=== PATIENT | male | born 1970 | race Caucasian/White ===

== ENCOUNTER 2017-11-12 20:38 | Emergency (ER) | payer OTHER ==
[~2017-11-12] VITALS: Ht 180.3 cm; Wt 105.2 kg
[2017-11-12] MEDS ORDERED: COREG25 MG PO (20:52)
[2017-11-12] MEDS ORDERED: SPIRONOLACTONE25 M1 PO (20:52)
[2017-11-12] MEDS ORDERED: LAMICTAL100 MG PO (20:53)
[2017-11-12] MEDS ORDERED: PRINIVIL10 MG PO (20:53)
[2017-11-12] MEDS ORDERED: PREDNISONE 5 MG5 M1 PO (20:53)
[2017-11-12 21:13] LABS: ANION GAP 7 mmol/L (7-16); BUN 14 mg/dL (7-18); CALCIUM 8.5 mg/dL (8.5-10.1); CHLORIDE 104 mmol/L (98-107); CO2 26 mmol/L (21-32); CREATININE 1.1 mg/dL (0.6-1.3); GLUCOSE 108 mg/dL (70-99); INR 1.1; POTASSIUM 4.5 mmol/L (3.5-5.1); PROTIME 10.6 Seconds (9.20-11.50); SODIUM 137 mmol/L (136-145)
[2017-11-12 21:20] LABS: ABSOLUTE BASOPHILS 0.1 thou/uL (0.0-0.2); ABSOLUTE EOSINOPHILS 0.1 thou/uL (0.0-0.7); ABSOLUTE LYMPHOCYTES 1.4 thou/uL (0.8-5.3); ABSOLUTE MONOCYTES 0.6 thou/uL (0.0-1.2); ABSOLUTE NEUTROPHILS 4.4 thou/uL (1.6-8.1); BASOPHILS 1.2 %; EOSINOPHILS 1.7 %; HEMOGLOBIN 16.5 gm/dL (14.0-18.0); LYMPHOCYTES 20.8 %; MCH 30.4 pg (26.0-34.0); MCHC 33.6 g/dL (28.0-37.0); MCV 90.6 fL (80.0-100.0); MONOCYTES 8.8 %; MPV 9.4 fl. (7.2-11.1); NUCLEATED RBCS 0 /100WBC; PLATELET COUNT* 288 thou/uL (150-400); POLYS 67.5 %; RBC 5.41 mil/uL (4.50-6.00); RDW-CV 14.3 % (10.5-14.5); WBC 6.5 thou/uL (4.0-11.0)
[2017-11-12 21:23] LABS: ALBUMIN 3.2 g/dL (3.4-5.0); ALKALINE PHOSPHATASE 38 U/L (46-116); LIPASE 113 U/L (73-393); NT-PRO BRAIN NAT PEPTIDE 664 pg/mL (<300); SGOT 19 U/L (15-37); SGPT 32 U/L (30-65); TOTAL BILIRUBIN 0.3 mg/dL (<0.1-1.0); TOTAL PROTEIN 6.6 g/dL (6.4-8.2); TROPONIN-I LEVEL <0.06 ng/mL (<0.06)
[2017-11-12 23:07] LABS: URINE BILIRUBIN NEGATIVE (Negative); URINE BLOOD NEGATIVE (Negative); URINE CLARITY CLEAR; URINE COLOR YELLOW; URINE GLUCOSE-RANDOM NEGATIVE (Negative); URINE KETONES NEGATIVE (Negative); URINE LEUKOCYTES-REFLEX NEGATIVE (Negative); URINE NITRITE-REFLEX NEGATIVE (Negative); URINE PROTEIN NEGATIVE (Negative); URINE UROBILINOGEN 0.2 E.U./dl (0.2-1.0)
[2017-11-12 23:14] LABS: AMP/METHAMP Negative (Negative); BARBITURATES Negative (Negative); BENZODIAZEPINES Negative (Negative); COCAINE Negative (Negative); METHADONE Negative (Negative); OPIATES Negative (Negative); PCP Negative (Negative); THC Negative (Negative)
[2017-11-13 00:18] VITALS: BP 125/87
--- NOTE | 2017-11-13 09:39 | EKG ---
[place] [address] ELECTROCARDIOGRAM REPORT Name: WILMA BARNETT [id number] Admission: 11/12/17 Attend Phys: Discharge: 11/13/17 Date of : 72 Report #: [id number] THIS REPORT FOR: //name// [facility] [place] ED Test Date: 2017-11-12 Test Time: 20:46:12 Pat Name: WILMA BARNETT Department: Room: Gender: M Tax [employer] Cpa: MARISOL : 1970 Requested By: Neva Fuller Order Number: [id number] MD: Eugenio Norman Measurements Intervals [place] Rate: 83 P: 30 MO: 163 QRS: -20 QRSD: 103 T: 196 QT: 387 QTc: 455 Interpretive Statements Sinus rhythm Probable left atrial enlargement LVH with secondary repolarization abnormality Anterior ST elevation, probably due to LVH No previous ECG available for comparison Electronically Signed On 11-13-2017 9:39:41 CDT by Eugenio Norman [email or web address] <ELECTRONICALLY SIGNED> By: Eugenio Norman MD, [facility] 11/13/17 0939 45 45 Eugenio Norman MD, [facility] /EPI
== END 2017-11-13 00:15 | disposition short-term general hospital (02) ==
LOC: M.ERS 20:38
PROVIDERS: Emergency Medicine
DX: R07.89 Other chest pain (principal); I11.0 Hypertensive heart disease with heart failure; I50.9 Heart failure, unspecified; F31.9 Bipolar disorder, unspecified; J45.909 Unspecified asthma, uncomplicated; Z79.899 Other long term (current) drug therapy